=== PATIENT | male | born 1990 | race Caucasian/White ===

== ENCOUNTER 2021-09-04 10:53 | Emergency (ER) | payer OTHER ==
[2021-09-04] MEDS ORDERED: ONDANSETRON 4 MG/2 ML VIAL ONE (12:49)
[2021-09-04] MEDS ORDERED: MORPHINE 4 MG/ML SYR ONE (12:49)
[2021-09-04] MEDS ORDERED: BUPIVACAINE 0.5% PF 10 ML VIAL ONE (12:49)
[2021-09-04] MEDS ORDERED: LIDOCAINE 1% W/EPI 1:100,000 MDV 50 ML VIAL ONE (12:50)
[2021-09-04] MEDS ORDERED: NA CHLORIDE 0.9% 1,000 ML ONE (12:50)
[2021-09-04 13:30] LABS: Absolute Lymphocytes (CBC) 1.1 K/uL (0.7-4.9); Hematocrit 38.6 % (39.6-49.0); Lymphocytes % 8.4 % (15.3-44.8); MPV 8.6 fL (7.6-11.3); RBC Red Blood Cell Count 4.61 M/uL (4.33-5.43)
[2021-09-04 13:50] LABS: Albumin 3.8 g/dL (3.4-5.0); Bilirubin Direct 0.2 mg/dL (0-0.2); Bilirubin Total 0.7 mg/dL (0.2-1.0); Potassium 4.1 mmol/L (3.5-5.1)
[2021-09-04] MEDS ORDERED: CLINDAMYCIN 900MG/D5W 0 MG/0 ML IVPB IV ONE (14:13)
[2021-09-04] MEDS ORDERED: PIPERACIL/TAZO 4.5 GM VIAL IV ONE (14:24)
[2021-09-04] MEDS ORDERED: NA CHLORIDE 0.9% 100 ML ONE (14:25)
--- NOTE | 2021-09-04 14:36 | EDPHYS ---
Physician Documentation [facility] Name: Boyd Herr Age: 30 yrs Sex: Male : 1990 Arrival Date: 09/04/2021 Time: 10:56 Bed 9 Private MD: ED Physician Michael Alonso HPI: 09/04 12:45 This 30 yrs old Male presents to ER via Ambulatory with complaints of Rectal Pain. cp 12:45 The patient presents to the emergency department with pain in the rectal area, that is cp moderate. Onset: The symptoms/episode began/occurred last week. 12:45 Associate signs and symptoms: Pertinent positives: pain with bowel movement, Pertinent cp negatives: abdominal pain, constipation, diarrhea. Historical: - Allergies: 11:11 No Known Allergies; ab2 - PMHx: 11:11 None; ab2 - Immunization history:: Client reports receiving the 2nd dose of the Covid vaccine, Pneumococcal vaccine is not up to date, Flu vaccine is not up to date. - Social history:: Smoking status: Patient denies any tobacco usage or history of. ROS: 12:50 Abdomen/GI: Positive for rectal pain. cp 12:50 Constitutional: Negative for body aches, chills, fever, poor PO intake. cp 12:50 Respiratory: Negative for cough, shortness of breath, wheezing. 12:50 Eyes: Negative for injury, pain, redness, and discharge. cp 12:50 Cardiovascular: Negative for chest pain, palpitations. 12:50 : Negative for urinary symptoms. 12:50 Neuro: Negative for altered mental status, headache, weakness. 12:50 All other systems are negative. Exam: 12:55 Constitutional: The patient appears in no acute distress, alert, awake, non-toxic, well cp developed, well nourished, uncomfortable. 12:55 Head/Face: Normocephalic, atraumatic. cp 12:55 Chest/axilla: Inspection: normal. 12:55 Cardiovascular: Rate: tachycardic. 12:55 Respiratory: the patient does not display signs of respiratory distress, Respirations: normal, no use of accessory muscles. 12:55 Abdomen/GI: Inspection: abdomen appears normal, Palpation: abdomen is soft and non-tender, in all quadrants. 12:55 Back: pain, is absent, ROM is normal. 12:55 : Rectal exam: noted abscess medial to right upper buttock with marked tenderness to palpation. Vital Signs: 11:07 BP 160 / 90; Pulse 110; Resp 16; Temp 98.2(O); Pulse Ox 99% ; Weight 102.06 kg (R); ab2 Height 6 ft. 1 in. (185.42 cm) (R); 13:49 BP 147 / 91; Pulse 105; Resp 16; Pulse Ox 97% on R/A; ab2 14:51 BP 137 / 84; Pulse 97; Resp 16; Pulse Ox 99% on R/A; ab2 11:07 Body Mass Index 29.68 (102.06 kg, 185.42 cm) ab2 Procedures: 14:30 I \T\ D: Incision and drainage was performed for an abscess of the medial to right upper cp inner buttock Prepped with Betadine, Anesthetized with 10 ccs of 50/50 mixture 1% lidocaine with epi and 0.5% marcaine. Incised with #11 blade. Drained moderate amount purulent fluid. Packed with iodoform gauze, Dressing: sterile 4x4 gauze, the patient tolerated the procedure well. MDM: 11:23 Patient medically screened. 14:35 Data reviewed: vital signs, nurses notes, lab test result(s), and as a result, I will cp discharge patient. 14:35 Counseling: I had a detailed discussion with the patient and/or guardian regarding: the cp historical points, exam findings, and any diagnostic results supporting the discharge/admit diagnosis, lab results, the need for outpatient follow up, a general surgeon. Response to treatment: the patient's symptoms have markedly improved after treatment. ED course: VSS. Pain markedly improved. Consult with DR Prieto who will see patient in clinic in next 1-2 days for follow-up. 09/04 12:42 Order name: Basic Metabolic Panel; Complete Time: 14: 09/04 12:42 Order name: CBC with Diff; Complete Time: 14: 09/04 14:06 Interpretation: Normal except: WBC 13.00; HGB 13.0; HCT 38.6. cp 09/04 12:42 Order name: Hepatic Function; Complete Time: 14: 09/04 12:42 Order name: IV; Complete Time: 13:03 cp 09/04 12:42 Order name: Labs collected and sent; Complete Time: 13:03 cp 09/04 12:42 Order name: I\T\D Setup; Complete Time: 13:26 cp 09/04 14:30 Order name: Wound dressing; Complete Time: 14:50 cp Administered Medications: 13:03 Drug: NS 0.9% 1000 ml Route: IV; Rate: 1 bolus; Site: right antecubital; ab2 13:50 Follow up: Response: No adverse reaction; IV Status: Completed infusion ab2 13:03 Drug: morphine 4 mg Route: IVP; Site: right antecubital; ab2 13:50 Follow up: Response: No adverse reaction ab2 13:03 Drug: Zofran (Ondansetron) 4 mg Route: IVP; Site: right antecubital; ab2 13:50 Follow up: Response: No adverse reaction ab2 13:50 Drug: Lidocaine-Epinephrine -1%: (1:100,000) 10 ml {Note: used for I\T\D by madison david PA.} Volume: 20 ml; Route: Infiltration; 13:51 Follow up: Response: No adverse reaction ab2 13:51 Drug: Marcaine (bupivacaine) (0.5 %) 10 ml {Note: Used by ONESIMO David for I\T\D.} ab2 Volume: 10 ml; Route: Infiltration; 13:51 Follow up: Response: No adverse reaction ab2 14:10 CANCELLED (Physician Discretion): Clindamycin 900 mg IVPB once over 30 mins; (mix in 50 cp mL) 14:23 Drug: Zosyn (piperacillin-tazobactam) 4.5 grams Route: IVPB; Infused Over: 60 mins; ab2 Site: right antecubital; Disposition Summary: 09/04/21 14:35 Discharge Ordered Location: Home cp Problem: new cp Symptoms: have improved cp Condition: Stable cp Diagnosis - Anal abscess cp Followup: cp - With: Lonnie Fox MD - When: 1 - 2 days - Reason: Wound Recheck Followup: cp - With: Arie Prieto MD - When: 1 - 2 days - Reason: Wound Recheck Discharge Instructions: - Discharge Summary Sheet cp - Anorectal Abscess cp Forms: - Medication Reconciliation Form cp - Thank You Letter cp - Antibiotic Education cp - Prescription Opioid Use cp Prescriptions: - Augmentin 875-125 mg Oral Tablet - take 1 tablet by ORAL route every 12 hours for 10 days; 20 tablet; Refills: 0, cp Product Selection Permitted - Tylenol-Codeine #3 300 mg-30 mg Oral - take 2 tablet by ORAL route every 8-10 hours; 15 tablet; Refills: 0, Product cp Selection Permitted - Ibuprofen 800 mg Oral Tablet - take 1 tablet by ORAL route every 8 hours As needed take with food; 30 tablet; cp Refills: 0, Product Selection Permitted Addendum: 09/06/2021 19:14 Co-signature as Attending Physician, Michael Alonso MD I agree with the assessment and k dr plan of care. Signatures: Dispatcher [employer] EDMS Michael Alonso MD MD kdr Jaspal Tiwari PA PA cp Cezar Sheppard2 Corrections: (The following items were deleted from the chart) 09/04 14:10 14:07 Clindamycin 900 mg IVPB once over 30 mins; (mix in 50 mL) ordered. cp cp 14:28 14:27 This 30 yrs old Male presents to ER via Ambulatory with complaints of Rectal cp Pain. cp
--- NOTE | 2021-09-04 14:36 | ER ---
Nurse's Notes [facility] Name: Boyd Herr Age: 30 yrs Sex: Male : 1990 Arrival Date: 09/04/2021 Time: 10:56 Bed 9 Private MD: Diagnosis: Anal abscess Presentation: 09/04 11:07 Chief complaint: Patient states: A couple months ago patient was getting in car and his ab2 entire weight came down on his rectum, slid of the running board and slid onto the running board injuring his rectum-for a week patient used heating pad then suddenly during a bowel movement patient started having rectal pain again. at rests 12/27. Coronavirus screen: Vaccine status: Patient reports receiving the 2nd dose of the covid vaccine. Ebola Screen: Patient negative for fever greater than or equal to 101.5 degrees Fahrenheit, and additional compatible Ebola Virus Disease symptoms Patient denies exposure to infectious person. Patient denies travel to an Ebola-affected area in the 21 days before illness onset. Initial Sepsis Screen: Does the patient meet any 2 criteria? No. Patient's initial sepsis screen is negative. Does the patient have a suspected source of infection? No. Patient's initial sepsis screen is negative. Risk Assessment: Do you want to hurt yourself or someone else? Patient reports no desire to harm self or others. Onset of symptoms is unknown. 11:07 Method Of Arrival: Ambulatory ab2 11:07 Acuity: CH[facility] 4 ab2 Triage Assessment: 11:12 General: Appears uncomfortable, Behavior is calm. Pain: Complains of pain in ab2 buttocks-rectum. Historical: - Allergies: 11:11 No Known Allergies; ab2 - PMHx: 11:11 None; ab2 - Immunization history:: Client reports receiving the 2nd dose of the Covid vaccine, Pneumococcal vaccine is not up to date, Flu vaccine is not up to date. - Social history:: Smoking status: Patient denies any tobacco usage or history of. Screenin:12 Abuse screen: Denies threats or abuse. Denies injuries from another. Nutritional ab2 screening: No deficits noted. Tuberculosis screening: No symptoms or risk factors identified. Fall Risk None identified. Assessment: 11:16 General: Appears in no apparent distress. uncomfortable, Behavior is calm, cooperative, ab2 appropriate for age. Pain: Complains of pain in gluteal cleft Quality of pain is described as aching. Neuro: Level of Consciousness is awake, alert, obeys commands, Oriented to person, place, time, situation, Appropriate for age Abstract Checker are equal bilaterally Moves all extremities. Gait is steady, Speech is normal. Cardiovascular: No deficits noted. Reports None Denies chest pain, shortness of breath, Heart tones S1 S2 present Capillary refill < 3 seconds Patient's skin is warm and dry. Respiratory: Airway is patent Respiratory effort is even, unlabored, Respiratory pattern is regular, symmetrical, Breath sounds are clear bilaterally. Denies cough, shortness of breath. GI: No deficits noted. No signs and/or symptoms were reported involving the gastrointestinal system. Abdomen is round non-distended, Bowel sounds present X 4 quads. : No deficits noted. No signs and/or symptoms were reported regarding the genitourinary system. EENT: No deficits noted. No signs and/or symptoms were reported regarding the EENT system. Derm: No deficits noted. No signs and/or symptoms reported regarding the dermatologic system. Skin is intact, is healthy with good turgor, Skin is dry, Skin is pink, warm \T\ dry. Musculoskeletal: Reports pain in gluteal cleft. 13:53 Reassessment: Patient appears in no apparent distress at this time. Pt resting ab2 comfortably. PA at bedside for I\T\D. Pt tolerating well. Denies any needs. 14:50 Reassessment: Patient appears in no apparent distress at this time. Awaiting abx to ab2 infuse then patient will be discharged. Dressing applied to affected area, pt tolerated well Patient states symptoms have improved. Vital Signs: 11:07 BP 160 / 90; Pulse 110; Resp 16; Temp 98.2(O); Pulse Ox 99% ; Weight 102.06 kg (R); ab2 Height 6 ft. 1 in. (185.42 cm) (R); 13:49 BP 147 / 91; Pulse 105; Resp 16; Pulse Ox 97% on R/A; ab2 14:51 BP 137 / 84; Pulse 97; Resp 16; Pulse Ox 99% on R/A; ab2 11:07 Body Mass Index 29.68 (102.06 kg, 185.42 cm) ab2 ED Course: 10:56 Patient arrived in ED. rg4 11:11 Triage completed. ab2 11:12 Cezar Sheppard is Primary Nurse. ab2 11:12 Arm band placed on right wrist. ab2 11:18 Jaspal Tiwari PA [facility]. cp 11:18 Michael Alonso MD is Attending Physician. cp 11:18 Patient has correct armband on for positive identification. Placed in gown. Bed in low ab2 position. Call light in reach. Side rails up X2. 11:18 No provider procedures requiring assistance completed. ab2 13:00 Inserted saline lock: 20 gauge in right antecubital area, using aseptic technique. ab2 Blood collected. 13:03 Basic Metabolic Panel Sent. ab2 13:03 CBC with Diff Sent. ab2 13:03 Hepatic Function Sent. ab2 14:32 Lonnie Fox MD is Referral Physician. cp 14:34 Referral Physician role handed off by Lonnie Fox MD cp 14:34 rAie Prieto MD is Referral Physician. cp 15:22 Dressings: 4X4s X 1; gluteal cleft. ab2 15:23 IV discontinued, intact, bleeding controlled, No redness/swelling at site. Pressure ab2 dressing applied. Administered Medications: 13:03 Drug: NS 0.9% 1000 ml Route: IV; Rate: 1 bolus; Site: right antecubital; ab2 13:50 Follow up: Response: No adverse reaction; IV Status: Completed infusion ab2 13:03 Drug: morphine 4 mg Route: IVP; Site: right antecubital; ab2 13:50 Follow up: Response: No adverse reaction ab2 13:03 Drug: Zofran (Ondansetron) 4 mg Route: IVP; Site: right antecubital; ab2 13:50 Follow up: Response: No adverse reaction ab2 13:50 Drug: Lidocaine-Epinephrine -1%: (1:100,000) 10 ml {Note: used for I\T\D by madison david.} Volume: 20 ml; Route: Infiltration; 13:51 Follow up: Response: No adverse reaction ab2 13:51 Drug: Marcaine (bupivacaine) (0.5 %) 10 ml {Note: Used by ONESIMO David for I\T\D.} ab2 Volume: 10 ml; Route: Infiltration; 13:51 Follow up: Response: No adverse reaction ab2 14:10 CANCELLED (Physician Discretion): Clindamycin 900 mg IVPB once over 30 mins; (mix in 50 cp mL) 14:23 Drug: Zosyn (piperacillin-tazobactam) 4.5 grams Route: IVPB; Infused Over: 60 mins; ab2 Site: right antecubital; Outcome: 14:35 Discharge ordered by . blair 15:23 Discharged to home ambulatory. ab2 15:23 Condition: good 15:23 Discharge instructions given to patient, Instructed on discharge instructions, follow up and referral plans. medication usage, Demonstrated understanding of instructions, follow-up care, medications, Prescriptions given X 3. 15:23 Patient left the ED. ab2 Signatures: Jaspal Tiwari PA PA cp Garcia, Rubi rg4 Cezar Sheppard ab2
[2021-09-04 15:53] VITALS: TEMP 98.2
[2021-09-04 15:55] VITALS: BP 137/84; O2SAT 99
== END 2021-09-04 15:23 | disposition home or self-care (01) ==
LOC: ER 10:53
PROC: 0H98XZZ Drainage of Buttock Skin, External Approach (ICD-10-PCS; principal; 2021-09-04)
DX: L02.31 Cutaneous abscess of buttock (principal)
CPT/HCPCS: 96361; 85025; 80048; 36415; 80076; 96375; 96374; 99284; 10060; J7030; J2405

== ENCOUNTER 2021-09-11 06:22 | Day surgery (SDC) | payer OTHER ==
[2021-09-11] MEDS ORDERED: CEFAZOLIN/SWI 2gm 2 GM/20 ML SYR ONE (06:55)
[2021-09-11] MEDS ORDERED: Ringers Lactate 1,000 ML IV ONE (06:55)
[2021-09-11] MEDS ORDERED: propofoL 200 MG/20 ML VIAL IV ONE (07:00)
[2021-09-11] MEDS ORDERED: MIDAZOLAM HCL 2 MG/2 ML INJ ONE (07:00)
[2021-09-11] MEDS ORDERED: FENTANYL CITR 100 MCG/2 ML ONE (07:00)
[2021-09-11] MEDS ORDERED: LIDOCAINE 2% MPF 5 ML VIAL ONE ×2 (07:05→07:07)
[2021-09-11] MEDS ORDERED: ONDANSETRON 4 MG/2 ML VIAL ONE (07:05)
[2021-09-11] MEDS: BUPIVACAINE 0.25% PF 10 ML VIAL ONE ×3 (07:20→07:49)
[2021-09-11] MEDS ORDERED: dexAMETHasone 10 MG/ML VIAL ONE (07:46)
[2021-09-11] MEDS ORDERED: MEPERIDINE HCL 25 MG/ML SYR ONE (07:52)
[2021-09-11] MEDS ORDERED: KETOROLAC 30 MG/ML INJ ONE (07:53)
--- NOTE | 2021-09-11 07:56 | P.OP ---
Preoperative diagnosis: Perianal Fistula Postoperative diagnosis: Perianal Fistula Primary procedure: Exam under anesthesia Secondary procedure: Placement of cutting Seton in perianal fistula Anesthesia: GETA + Local Estimated blood loss: <5cc Specimen: none Findings: perianal fistula linear to rectal mucosa Complications: None Implants: Seton Transferred to: Recovery Room Condition: Good
[2021-09-11] MEDS: HYDROMORPHONE HCL 1 MG/ML INJ ONE ×2 (08:30→08:36)
[2021-09-11] MEDS ORDERED: HYDROMORPHONE HCL 1 MG/ML INJ ONE (08:52)
--- NOTE | 2021-09-11 09:14 | OP ---
Date of Procedure: 09/11/2021 Surgeon: Arie Prieto MD, Preoperative Diagnosis: Perianal fistula. Postoperative Diagnosis: Perianal fistula. Procedures Performed: 1. Exam under anesthesia. 2. Placement of cutting seton within perianal fistula. Anesthesia: General endotracheal plus local with 0.25% Marcaine. Estimated Blood Loss: 5 mL. Specimen: None. Findings: Perianal fistula linear following good cells to rectal mucosa. Complications: None. Implants: Cutting seton/vessel loop. Disposition: The patient was transferred to recovery room in good condition. Procedure In Detail: After informed consent was obtained, the patient was brought to the operating room, prepped and draped in the usual sterile fashion after adequate anesthesia achieved. The patient was in lithotomy position. I performed digital rectal examination and found very fullness in the posterior position at approximately 6 o'clock position on the rectal mucosa. There was a small perianal opening. I injected this with methylene blue. I then placed an anoscope and noted that there was blue dye into the anal mucosa and it was identified almost linear tract from the course. I then placed a probe and found the opening from the rectal mucosa. At this point, I used the rectal probe to pass a seton through this tract and tied it and secured with a 2-0 silk suture. I then placed pressure on the area and hemostasis was achieved without any additional hemostatic maneuvers. I then placed Gelfoam into the anus and a sterile dressing placed over top. The patient tolerated the procedure well without evidence of complication and transferred to PACU in good condition. All counts were correct at the end of the case. ASHIA/JUAN ALBERTO Voice ID: [id number] Report ID: [id number] MARANDA
[2021-09-11] MEDS ORDERED: HYDROCODONE/APAP 10/325 TAB ONE (09:34)
[2021-09-11] MEDS ORDERED: METHYLENE BLUE 0.5% 10 ML AMP ONE (09:38)
[2021-09-11 10:36] VITALS: BP 125/74; TEMP 97.6; O2SAT 96
== END 2021-09-11 10:00 | disposition home or self-care (01) ==
LOC: PRE 06:22
PROVIDERS: ATTEND Surgery
PROC: 0DH Gastrointestinal System, Insertion (ICD-10-PCS; principal; 2021-09-11 07:30)
DX: K61.0 Anal abscess (principal); Z20.822 Contact with and (suspected) exposure to COVID-19
CPT/HCPCS: 46020; U0003; J2704; J2250; J3010; J1100; J2175; J1170 ×2; J0690; J7120; J2405